=== PATIENT | female | born 1985 | race African-American/Black ===

== ENCOUNTER 2020-06-07 01:02 | Emergency (ER) | payer SELFPAY ==
[2020-06-07 01:23] VITALS: BMI 48.6
[2020-06-07] MEDS ORDERED: HYDROmorphone HCL CARPU-JECT 2 MG/1 ML DISP.SYRIN IM ONE ×3 (01:49→04:04)
[2020-06-07] MEDS ORDERED: HYDROmorphone HCl 2 MG/ML VIAL ONE ×3 (02:01→04:02)
[2020-06-07 04:46] VITALS: BP 158/93; PULSE 97; TEMP 98.5
== END 2020-06-07 04:45 | disposition home or self-care (01) ==
LOC: JER 01:02
PROC: 3E033NZ Introduction of Analgesics, Hypnotics, Sedatives into Peripheral Vein, Percutaneous Approach (ICD-10-PCS; principal; 2020-06-07)
PROC: 3E033NZ Introduction of Analgesics, Hypnotics, Sedatives into Peripheral Vein, Percutaneous Approach (ICD-10-PCS; 2020-06-07)
PROC: 3E033NZ Introduction of Analgesics, Hypnotics, Sedatives into Peripheral Vein, Percutaneous Approach (ICD-10-PCS; 2020-06-07)
DX: D57.219 Sickle-cell/Hb-C disease with crisis, unspecified (principal)
CPT/HCPCS: 99284-25

== ENCOUNTER 2020-06-09 13:59 | Emergency (ER) | payer SELFPAY ==
[2020-06-09 14:03] VITALS: BP 128/84; TEMP 98.5; BMI 40.7
[2020-06-09] MEDS ORDERED: HYDROmorphone HCL CARPU-JECT 2 MG/1 ML DISP.SYRIN IVPUSH ONE ×2 (14:49→19:29)
[2020-06-09] MEDS ORDERED: SODIUM CHLORIDE 1,000 ML IV STA (14:49)
[2020-06-09] MEDS ORDERED: HYDROmorphone HCl 2 MG/ML VIAL ONE ×3 (15:19→19:32)
[2020-06-09 15:59] LABS: HCG,QUALITATIVE URINE Negative
[2020-06-09 16:00] LABS: URINE APPEARANCE CLOUDY; URINE BILIRUBIN NEGATIVE (NEGATIVE); URINE COLOR YELLOW; URINE GLUCOSE (UA) 1+ (NEGATIVE); URINE KETONE TRACE (NEGATIVE)
[2020-06-09 16:01] LABS: PH,URINE 5.5 (5.0-8.0); URINE PROTEIN 3+ (NEGATIVE)
[2020-06-09 16:02] LABS: URINE LEUK ESTERASE TRACE (NEGATIVE); URINE NITRITE NEGATIVE (NEGATIVE)
[2020-06-09 16:04] LABS: EPI CELLS 56.7 /uL (0-25.1); HYALINE CASTS 3.59 /uL (0-3.1); URINE BACTERIA 1583.1 /uL (0-1359); URINE RBC 40.8 /uL (0-23.9); URINE WBC 317.4 /uL (0-25.8)
[2020-06-09] MEDS ORDERED: HYDROmorphone HCL CARPU-JECT 2 MG/1 ML DISP.SYRIN SQ ONE (18:00)
[2020-06-09 18:30] LABS: BASO % 0.4 % (0-2.0); EOS % 2.2 % (0-4.5); HEMATOCRIT 31.3 % (32.4-45.2); HEMOGLOBIN 10.2 GM/dL (10.7-15.3); LYMPH % 32.7 % (8-40); MCH 26.8 pg (25.7-33.7); MCHC 32.5 g/dl (32.0-36.0); MEAN CELL VOLUME 82.4 fl (80-96); MEAN PLT VOLUME 8.4 fl (7.5-11.1); MONO % 6.9 % (3.8-10.2); NEUT % 57.8 % (42.8-82.8); PLATELET COUNT 379 K/MM3 (134-434); RDW 16.6 % (11.6-15.6); RETICULOCYTES 1.41 % (0.5-1.5); WHITE BLOOD COUNT 8.9 K/mm3 (4.0-10.0)
[2020-06-09 18:53] LABS: POTASSIUM 4.2 mmol/L (3.5-5.1)
[2020-06-09 18:55] LABS: CALCIUM 9.9 mg/dL (8.5-10.1)
[2020-06-09 18:56] LABS: ALBUMIN 3.4 g/dl (3.4-5.0); BLOOD UREA NITROGEN 31.7 mg/dL (7-18)
[2020-06-09 18:59] LABS: CREATININE 1.4 mg/dL (0.55-1.3)
[2020-06-09 19:01] LABS: BILIRUBIN,TOTAL 0.2 mg/dL (0.2-1); TOT PROT 7.9 g/dl (6.4-8.2)
[2020-06-09 19:56] VITALS: PULSE 101
== END 2020-06-09 21:20 | disposition home or self-care (01) ==
LOC: JER 13:59
PROC: 3E033NZ Introduction of Analgesics, Hypnotics, Sedatives into Peripheral Vein, Percutaneous Approach (ICD-10-PCS; principal; 2020-06-09)
PROC: 3E0337Z Introduction of Electrolytic and Water Balance Substance into Peripheral Vein, Percutaneous Approach (ICD-10-PCS; 2020-06-09)
PROC: 3E033GC Introduction of Other Therapeutic Substance into Peripheral Vein, Percutaneous Approach (ICD-10-PCS; 2020-06-09)
DX: D57.00 Hb-SS disease with crisis, unspecified (principal)
CPT/HCPCS: 36415; 80053; 81003; 84703; 85025; 85045; 86850; 86900; 86901; 99285-25

== ENCOUNTER 2020-06-15 01:45 | Emergency (ER) | payer SELFPAY ==
[2020-06-15 04:01] VITALS: BP 168/99; PULSE 73; TEMP 98.3; BMI 37.0
== END 2020-06-15 03:46 | disposition left against medical advice (07) ==
LOC: JER 01:45
DX: R52 Pain, unspecified (principal)
CPT/HCPCS: 99284-25